=== PATIENT | male | born 1990 | race Caucasian/White ===

== ENCOUNTER 2022-10-21 11:01 | Emergency (ER) | payer BC, OTHER ==
[2022-10-21] MEDS ORDERED: Boostrix 0.5 ML (Tdap) VIAL (>/=7 yrs of age) ONE (11:28)
== END 2022-10-21 12:26 | disposition home or self-care (01) ==
LOC: NAV ERS 11:01
DX: S61.411A Laceration without foreign body of right hand, initial encounter (principal); W26.8XXA Contact with other sharp object(s), not elsewhere classified, initial encounter; Z23 Encounter for immunization
CPT/HCPCS: 12001; 90471; 90715